=== PATIENT | male | born 1955 | race Caucasian/White ===

== ENCOUNTER 2019-07-14 05:14 | Emergency (ER) | payer MEDICAID, SELFPAY ==
[2019-07-14 05:31] VITALS: BP 157/93; PULSE 95; RESP 18; TEMP 36.7; O2SAT 97; BMI 27.3
--- NOTE | 2019-07-14 05:40 | CT_ITS ---
PROCEDURE: CT LUMBAR SPINE WO CON CLINICAL HISTORY: fall Fall with injury and pain COMPARISON: No exams were available for comparison TECHNIQUE: Axial images obtained with sagittal and coronal reformats. All CT scans at the facility use one or more dose reduction, viz: automated exposure control, ma/kV adjustment per patient size (including targeted exams where dose is matched to indication, i.e. head), or iterative reconstruction technique. FINDINGS: Normal alignment. No acute fracture or dislocation. Mild multilevel lumbar spondylosis. Degenerative disc disease T12-L1 L3-L4: Degenerate disc disease with bulging disc and facet ligamentum hypertrophy with bilateral foraminal narrowing. Hypertrophic changes are present involving the spinous processes of L2, L3, and L4 with bony sclerosis suggesting Baastrup's syndrome. L4-5: Degenerate disc disease with bulging disc with facet and ligamentum hypertrophy with bilateral foraminal narrowing. L5-S1 degenerative disc disease with posterior disc osteophyte complex and bilateral foraminal narrowing. IMPRESSION: The 1. No acute fracture. 2. Multilevel lumbar spondylosis 3. Findings compatible with Baastrup syndrome Dictated by: Mt Wolfe MD 07/14/2019 07:53 Electronically signed by Mt Wolfe MD in [place] 07/14/2019 07:53
--- NOTE | 2019-07-14 05:40 | CT_ITS ---
PROCEDURE: CT CERVICAL SPINE WO CON CLINICAL INDICATION: fall Posttraumatic pain, fall with injury and pain COMPARISON: CT THORACIC SPINE WO CON from 07/14/2019 CT LUMBAR SPINE WO CON from 07/14/2019 TECHNIQUE: Axial images obtained with sagittal and coronal reformats. All CT scans at the facility use one or more dose reduction, viz: automated exposure control, ma/kV adjustment per patient size (including targeted exams where dose is matched to indication, i.e. head), or iterative reconstruction technique. Axial spiral CT scanning performed of the cervical spine beginning at the base of the skull and continuing to the upper T-spine. 3-D multiplanar reconstruction with 3-D manipulation of volumetric data set in image rendering was completed by the radiologist and/or technologist with the supervision of the radiologist on independent workstation. FINDINGS: Nondisplaced fractures are present involving the anterior aspect of the posterior arch of C1 on both sides. There is a comminuted fracture of the C2 vertebral body. The fracture involves the medial aspect of the lateral masses on both sides and with a longitudinal component extending to the posterior aspect of the vertebral body. There is 6 mm anterior displacement of the anterior aspect of the vertebral body and 5 mm posterior displacement of the posterior aspect of the vertebral body fragment with resultant canal stenosis of 8 mm. Degenerative disc disease C5-C6 and C6-C7 with canal stenosis at C6-C7 with severe bilateral foraminal narrowing. IMPRESSION: 1. Nondisplaced fracture involves the C1 arch bilaterally on both sides involving the anterior aspect of the arch 2. Comminuted fracture involves the C2 vertebral body involving the medial aspect of the lateral masses on both sides as well as a vertical component through the posterior aspect of the C2 vertebral body with 6 mm anterior displacement of the anterior fracture fragment and 5 mm posterior displacement of the posterior fracture fragment with canal stenosis. This is an unstable injury. 3. Degenerative changes with canal stenosis and severe bilateral foraminal narrowing at C6-C7 4. Dr. Laird was notified of these findings by telephone 07/14/2019 at 7:02 a.m. Dictated by: Mt Wolfe MD 07/14/2019 07:03 Electronically signed by Mt Wolfe MD in [place] 07/14/2019 07:03
--- NOTE | 2019-07-14 05:40 | XR_ITS ---
PROCEDURE: XR CHEST PORTABLE CLINICAL HISTORY: fall Fell out of bed COMPARISON: No exams were available for comparison FINDINGS: The cardiomediastinal silhouette and pulmonary vascularity are within normal limits considering the supine position. The lungs are clear without infiltrates, suspicious nodules, or pleural effusions. No acute bony abnormalities. There are mild multilevel degenerate IMPRESSION: Changes of the thoracic spine. Dictated by: Dr. Merrill Benjamin MD 07/14/2019 07:[address] Merrill Benjamin MD in [facility] 07/14/2019 07:40
--- NOTE | 2019-07-14 05:40 | CT_ITS ---
PROCEDURE: CT HEAD/BRAIN WO CON CLINICAL INDICATION: fall Posttraumatic pain, contusion or hematoma following injury, fall with injury and pain COMPARISON: No exams were available for comparison TECHNIQUE: Axial images obtained. All CT scans at the facility use one or more dose reduction, viz: automated exposure control, ma/kV adjustment per patient size (including targeted exams where dose is matched to indication, i.e. head), or iterative reconstruction technique. FINDINGS: No midline shift, mass effect, intracranial hemorrhage, hydrocephalus, or extra-axial fluid collection is evident. Mild soft tissue swelling right frontal region. The calvarium has an unremarkable appearance. No mastoid effusion. There is mucosal thickening of the right maxillary sinus and of the ethmoid sinuses and the right frontal ethmoid sinus region. IMPRESSION: 1. No acute intracranial findings. 2. Sinus disease Dictated by: Mt Wolfe MD 07/14/2019 06:49 Electronically signed by Mt Wolfe MD in [place] 07/14/2019 06:49
--- NOTE | 2019-07-14 05:40 | CT_ITS ---
PROCEDURE: CT THORACIC SPINE WO CON CLINICAL HISTORY: fall Fall with injury and pain, posttraumatic pain/contusion or hematoma COMPARISON: No exams were available for comparison TECHNIQUE: Axial images obtained with sagittal and coronal reformats. All CT scans at the facility use one or more dose reduction, viz: automated exposure control, ma/kV adjustment per patient size (including targeted exams where dose is matched to indication, i.e. head), or iterative reconstruction technique. FINDINGS: Normal alignment. There is minimal buckling of the cortex anteriorly and superiorly at T2 There is minimal loss of height anteriorly the of T3 with minimal cortical regularity along the anterior superior endplate of T3. No retropulsion. Similar finding is present at T4. No other significant anomalies are evident. There is mild thoracic spondylosis. IMPRESSION: Questionable minimal wedge compression changes of T3 and T4 anteriorly and minimal buckling of the cortex at T2 superiorly and anteriorly age indeterminate. No retropulsion. Dictated by: Mt Wolfe MD 07/14/2019 07:49 Electronically signed by Mt Wolfe MD in [place] 07/14/2019 07:49
--- NOTE | 2019-07-14 05:40 | XR_ITS ---
PROCEDURE: XR PELVIS 1-2V CLINICAL INDICATION: fall Fell out of bed, pelvic pain COMPARISON: No exams were available for comparison TECHNIQUE: XR Pelvis AP View FINDINGS: No fracture or dislocation is evident. No significant degenerative change. There are multiple small metallic surgical lucia overlying the upper mid pelvis probably due to previous ventral hernia repair. No lytic or blastic change. IMPRESSION: No acute findings. Dictated by: Dr. Merrill Benjamin MD 07/14/2019 07:[address] Merrill Benjamin MD in [place] 07/14/2019 07:41
[2019-07-14 06:17] LABS: Chloride 104 mmol/L (98-107); Potassium 4.3 mmoL/L (3.5-5.1); Sodium 136 mmol/L (136-145)
[2019-07-14 06:19] LABS: Alanine Aminotransferase 17 U/L (12-78); Aspartate Amino Transferase 27 U/L (17-59); Basophils % 0.2 % (0.1-2.0); Blood Urea Nitrogen 16 mg/dl (9-20); Creatinine Clearance Estimated 83 mL/min (50-200); Eosinophils # 0.1 K/mm3 (0.0-0.4); Eosinophils % 0.6 % (0.1-12.0); Estimated Glomerular Filt Rate 68 ml/min (>60); GFR (African American) 82 ML/MIN (>60); Hematocrit 42.9 % (42.0-52.0); Hemoglobin 14.1 g/dL (14.1-18.0); Lymphocytes # 0.7 K/mm3 (0.7-4.5); Lymphocytes % 8.3 % (10-50); Mean Corpuscular HGB Conc 32.9 g/dL (31.8-35.4); Mean Corpuscular Hemoglobin 31.9 pg (27.0-31.2); Mean Corpuscular Volume 96.8 fl (80-94); Mean Platelet Volume 8.7 fl (7.4-10.4); Monocytes # 0.5 K/mm3 (0.1-1.0); Monocytes % 5.7 % (1.7-9.3); Neutrophils # 6.9 K/mm3 (1.8-7.8); Neutrophils % 85.1 % (37.0-80.0); Platelet Count 96 K/mm3 (142-424); Red Blood Count 4.43 M/mm3 (4.60-6.20); Red Cell Distribution Width 13.3 % (11.5-17.5); White Blood Count 8.1 K/mm3 (4.8-10.8)
[2019-07-14 06:20] LABS: Albumin Level 4.3 g/dl (3.5-5.0); Albumin/Globulin Ratio 1.2 (1.1-1.8); Alkaline Phosphatase 75 U/L (38-126); Anion Gap 9.3 mEq/L (5-15); Bilirubin,Total 0.5 mg/dl (0.2-1.3); Calcium 9.2 mg/dl (8.4-10.2); Carbon Dioxide 27 mmol/L (22.0-30.0); Creatine Kinase 104 U/L (55-170); Globulin 3.5 g/dL (1.3-3.2); Glucose 162 mg/dl (74-100); Total Protein,Serum 7.8 g/dl (6.3-8.2)
[2019-07-14 06:21] LABS: MANUAL DIFFERENTIAL MANUAL DIFFERENTIAL (MANUAL DIFF)
[2019-07-14 06:25] LABS: C-Reactive Protein 1.1 mg/L (0-4)
[2019-07-14 06:27] LABS: Ethyl Alcohol < 10 mg/dl (0-10)
[2019-07-14 06:46] VITALS: BP 131/77; PULSE 101; RESP 16; TEMP 36.7; O2SAT 96
--- NOTE | 2019-07-14 06:46 | PC.NURSE ---
contacted [facility] for weather check. [place] is unavailable dispatch is checking for [place] status
[2019-07-14 06:51] LABS: Eosinophils % 2 % (0-3); Lymphocytes % 6 % (10-50); Monocytes % 4 % (2-9); Neutrophils % 88 % (42-76); RBC Morphology Normal; Total Cells Counted 100
--- NOTE | 2019-07-14 06:51 | [facility].EDFALL ---
ED Disposition Clinical Impression: Closed cervical spine fracture Qualifiers: Encounter type: initial encounter Cervical vertebra fracture level: C2 Fracture morphology: unspecified fracture morphology Fracture alignment: nondisplaced Qualified Code(s): S12.101A - Unspecified nondisplaced fracture of second cervical vertebra, initial encounter for closed fracture Disposition: Xfer Short-Term Hosp Condition on Discharge: Critical Referrals: Provider,Referral, MD [Primary Care Provider] - - Critical Care Critical Care Time: Yes Attestation: On 07/14/19, the high probability of a clinically significant, sudden or life threatening deterioration of the following system(s) required my full and direct attention, intervention and personal management. The time I documented below is in addition to time spent performing reported procedures but includes the following listed in this critical care notation. Total Critical Care Time: 60 Vital system(s) involved:: Central Nervous System My critical care processes included: Assessment & monitoring of V/S, Initial and Re-exams, Coordinating Care, Medication Orders and management Medical Decision Making - Medical Records Medical records reviewed: Yes: I reviewed the patient's medical records. - Jakub Inquiry Pt receiving controlled substance: No Vital Signs: 07/14/19 05:31 07/14/19 06:46 Temperature 98.0 F 98.1 F Temperature Source Oral Oral Pulse Rate [Right] 95 H 101 H Respiratory Rate 18 16 Blood Pressure [Right Arm] 157/93 H 131/77 Blood Pressure Mean [Right Arm] 114 95 Blood Pressure Source [Right Arm] Automatic Cuff Automatic Cuff Blood Pressure Position [Right Arm] Supine Sitting 02 Sat by Pulse Oximetry 97 96 Oxygen Delivery Method Room Air Room Air - Lab Data Lab results reviewed: Yes: I reviewed the patient's lab results. Lab Results 07/14/19 05:38: WBC 8.1, RBC 4.43 L, Hgb 14.1, Hct 42.9, MCV 96.8 H, MCH 31.9 H, MCHC 32.9, RDW 13.3, Plt Count 96 L, MPV 8.7, Neut % (Auto) 85.1 H, Lymph % (Auto) 8.3 L, [place] % (Auto) 5.7, Eos % (Auto) 0.6, Baso % (Auto) 0.2, Neut # (Auto) 6.9, Lymph # (Auto) 0.7, [place] # (Auto) 0.5, Eos # (Auto) 0.1, Baso # (Auto) 0.0, Total Counted 100, Neutrophils % (Manual) 88 H, Lymphocytes % (Manual) 6 L, Monocytes % (Manual) 4, Eosinophils % (Manual) 2, Platelet Estimate Marked decrease, RBC Morphology Normal, ESR 58 H 07/14/19 05:38: Sodium 136, Potassium 4.3, Chloride 104, Carbon Dioxide 27, Anion Gap 9.3, BUN 16, Creatinine 1.10, Estimated Creat Clear 83, Estimated GFR 68, Est GFR ( Amer) 82, Glucose 162 H, Calcium 9.2, Total Bilirubin 0.5, AST 27, ALT 17, Alkaline Phosphatase 75, Total Creatine Kinase 104, C-Reactive Protein 1.1, Total Protein 7.8, Albumin 4.3, Globulin 3.5 H, Albumin/Globulin Ratio 1.2 07/14/19 05:38: Plasma/Serum Alcohol < 10 Result diagrams: 07/14/19 05:38 07/14/19 05:38 Orders (Tests/Meds): ED MEDICATIONS Generic Name Dose Route Start Last Admin Trade Name Freq PRN Reason Stop Dose Admin Sodium Chloride 1,000 mls @ 999 mls/hr 07/14/19 05:45 07/14/19 05:57 Sod Chlor 0.9% 1000ml Bag IV 07/14/19 06:45 999 mls/hr .[id number] TERRENCE Administration Discontinued Medications Generic Name Dose Route Start Last Admin Trade Name Freq PRN Reason Stop Dose Admin Ketorolac Tromethamine 30 mg 07/14/19 05:43 07/14/19 05:57 Toradol 30mg/Ml Vial IV 07/14/19 05:44 30 mg ONCE ONE Administration Methylprednisolone Sodium Succinate 125 mg 07/14/19 06:47 07/14/19 06:48 Solu-Medrol 125mg/2ml Vial IV 07/14/19 06:48 125 mg ONCE ONE Administration ORDERS Category Date Time Status CT lumbar spine wo con Stat Cat Scan 07/14/19 05:[address] thoracic spine wo con Stat Cat Scan 07/14/19 05:40 Taken XR chest portable Stat Exams 07/14/19 05:40 Taken XR pelvis 1-2V Stat Exams 07/14/19 05:40 Taken - Radiology Data #1 Image(s): Chest, Pelvis Image Reviewed: Yes I reviewed the pat
[2019-07-14 06:52] LABS: Platelet Estimate Marked Decrease
[2019-07-14 06:55] LABS: Erythrocyte Sedimentation Rate 58 mm/hr (0-20)
--- NOTE | 2019-07-14 06:59 | PC.NURSE ---
speaking with Dr. Wolfe.
--- NOTE | 2019-07-14 07:04 | PC.NURSE ---
[facility] called back. [place] [facility] is coming to stand by on our sam pad. estimated time out is 21mins plus lift off.
--- NOTE | 2019-07-14 07:07 | PC.NURSE ---
Dr Laird on phone with [facility] for transfer, Helicopter in route
--- NOTE | 2019-07-14 07:09 | PC.NURSE ---
accepted at [facility]
[2019-07-14 07:23] VITALS: BP 131/77; PULSE 101; RESP 16; TEMP 36.7; O2SAT 96
--- NOTE | 2019-07-14 07:41 | PC.NURSE ---
[facility] advised their dows crew would be responding with [id number] min eta
== END 2019-07-14 08:12 | disposition short-term general hospital (02) ==
PROVIDERS: Emergency Provider Emergency Medicine
DX: S12.101A Unspecified nondisplaced fracture of second cervical vertebra, initial encounter for closed fracture (principal); W06.XXXA Fall from bed, initial encounter; Y92.013 Bedroom of single-family (private) house as the place of occurrence of the external cause; F17.210 Nicotine dependence, cigarettes, uncomplicated; Z88.2 Allergy status to sulfonamides
CPT/HCPCS: 29799; 70450; 71045; 72125; 72128; 72131; 72170; 80053; 82550; 85007; 85025; 85651; 86140; 96365; 96375; 99285

== ENCOUNTER → 2020-08-29 09:23 | Outpatient (CLI) | payer OTHER, SELFPAY ==
[2020-08-29 11:07] LABS: Basophils % 0.5 % (0.1-2.0); Eosinophils # 0.1 K/mm3 (0.0-0.4); Eosinophils % 0.7 % (0.1-12.0); Hematocrit 39.6 % (42.0-52.0); Hemoglobin 13.7 g/dL (14.1-18.0); Lymphocytes # 1.4 K/mm3 (0.7-4.5); Lymphocytes % 22.2 % (10-50); Mean Corpuscular HGB Conc 34.6 g/dL (31.8-35.4); Mean Corpuscular Hemoglobin 31.3 pg (27.0-31.2); Mean Corpuscular Volume 90.5 fl (80-94); Mean Platelet Volume 8.4 fl (7.4-10.4); Monocytes # 0.4 K/mm3 (0.1-1.0); Monocytes % 5.6 % (1.7-9.3); Neutrophils # 4.5 K/mm3 (1.8-7.8); Platelet Count 119 K/mm3 (142-424); Red Blood Count 4.38 M/mm3 (4.60-6.20); Red Cell Distribution Width 13.8 % (11.5-17.5); White Blood Count 6.3 K/mm3 (4.8-10.8)
[2020-08-29 11:47] LABS: Alanine Aminotransferase 17 U/L (12-78); Albumin Level 4.5 g/dl (3.5-5.0); Albumin/Globulin Ratio 1.4 (1.1-1.8); Alkaline Phosphatase 88 U/L (38-126); Anion Gap 13.4 mEq/L (5-15); Aspartate Amino Transferase 23 U/L (17-59); Bilirubin,Total 0.7 mg/dl (0.2-1.3); Blood Urea Nitrogen 19 mg/dl (9-20); Calcium 8.8 mg/dl (8.4-10.2); Carbon Dioxide 24 mmol/L (22.0-30.0); Chloride 106 mmol/L (98-107); Estimated Glomerular Filt Rate 85 ml/min (>60); GFR (African American) 103 ML/MIN (>60); Globulin 3.2 g/dL (1.3-3.2); Glucose 99 mg/dl (74-100); Potassium 4.4 mmoL/L (3.5-5.1); Sodium 139 mmol/L (136-145); Total Protein,Serum 7.7 g/dl (6.3-8.2)
[2020-09-04 19:10] LABS: Vitamin B1 156.7 nmol/L (66.5-200.0)
== END ==
PROVIDERS: PCP Family Medicine; Visit Provider Specialist
DX: R47.89 Other speech disturbances (principal)
CPT/HCPCS: 36415; 80053; 82746; 84425; 85025; 95816

== ENCOUNTER → 2020-09-02 14:00 | Outpatient (CLI) | payer OTHER, SELFPAY ==
--- NOTE | 2020-09-02 14:01 | MR_ITS ---
PROCEDURE: MR HEAD/BRAIN WO CON CLINICAL INDICATION: Speech disturbances Head bobbing. Speech disturbance. Tensing of muscles. Symptoms started about a month ago. No injury or trauma. COMPARISON: CT CT HEAD/BRAIN WO CON from 07/14/[address] CERVICAL SPINE WO CON from 07/14/2019 TECHNIQUE: Routine multiplanar multi echo sequences are performed without gadolinium enhancement. FINDINGS: No midline shift, mass effect, intracranial hemorrhage, or hydrocephalus. No evidence of restricted diffusion. No evidence of acute infarction. The cerebellopontine angles, cerebellum, and brainstem are unremarkable. There are numerous scattered T2 white matter hyperintensities as well as punctate T2 hyperintensities within the jeremi and basal ganglia. These may represent ischemic gliotic foci from microvascular disease. The pituitary, optic chiasm, corpus callosum, has an unremarkable appearance. Metallic artifact noted at the C1-C2 level anteriorly. There is mild mucosal thickening of the ethmoid sinuses. 18 mm retention cyst is present in the left maxillary sinus. IMPRESSION: 1. No acute intracranial findings. 2. Scattered T2 white matter hyperintensities which may reflect ischemic gliotic foci from microvascular disease. Differential diagnosis would include migraine headache. Demyelinating process felt to be less likely but not totally excluded based on pattern Dictated by: Mt Wolfe MD 09/03/2020 09:17 Mt Wolfe MD in [place] 09/03/2020 09:17
== END ==
PROVIDERS: PCP Family Medicine; Visit Provider Specialist
DX: R47.89 Other speech disturbances (principal)
CPT/HCPCS: 70551

== ENCOUNTER → 2020-09-11 20:00 | Outpatient (CLI) | payer OTHER, SELFPAY | PROVIDERS: PCP Family Medicine; Visit Provider Specialist | DX: G47.33 Obstructive sleep apnea (adult) (pediatric) (principal); G47.61 Periodic limb movement disorder | CPT/HCPCS: 95810 ==

== ENCOUNTER → 2020-09-19 10:40 | Outpatient (CLI) | payer OTHER, SELFPAY ==
[2020-09-19 12:29] LABS: Vitamin B12 751 pg/mL (239-931)
== END ==
PROVIDERS: Visit Provider Specialist
DX: R47.89 Other speech disturbances (principal)
CPT/HCPCS: 82607